=== PATIENT | male | born 1965 | race Caucasian/White ===

== ENCOUNTER → 2017-06-10 | Outpatient (CLI) | payer BC ==
[2017-06-10 15:47] LABS: BLOOD UREA NITROGEN 9 mg/dl (7-18); CALCIUM 8.7 mg/dl (8.5-10.1); CARBON DIOXIDE 26 mmol/L (21-32); CREATININE 1.01 mg/dl (0.60-1.40); GLUCOSE 107 mg/dl (70-99); POTASSIUM 3.9 mmol/L (3.5-5.1); SODIUM 135 mmol/L (136-145)
[2017-06-10 15:57] LABS: CHOLESTEROL 176 mg/dl (0-200); TRANSFERRIN 339 mg/dl (200-360)
[2017-06-11 08:10] LABS: HEMOGLOBIN A1C 6.2 % (4.5-5.6)
== END | disposition home or self-care (01) ==
LOC: C.LAB 11:34
PROVIDERS: ATTEND Physician Assistant
DX: E83.110 Hereditary hemochromatosis (principal); I10 Essential (primary) hypertension

== ENCOUNTER → 2017-06-17 | Outpatient (CLI) | payer BC ==
--- NOTE | 2017-06-17 13:53 | DIAGNOSTIC IMAGING REPORT ---
ABDOMEN AND PELVIS CT WITHOUT CONTRAST CT DOSE: 1687.60 mGy.cm HISTORY: Acute left lower quadrant abdominal pain DIVERTICULITIS TECHNIQUE: Multiaxial CT images of the abdomen and pelvis were performed without contrast. A dose lowering technique was utilized adhering to the principles of ALARA. COMPARISON STUDY: CT 05/02/2013. FINDINGS: Calcified granulomas of the lung bases. Subsegmental bibasilar groundglass opacities suggest atelectasis. No pneumatosis or pneumoperitoneum. Imaged inferior cardiac chambers are unremarkable. Hepatomegaly with hepatic steatosis. Spleen is mildly enlarged, 13.3 cm. Gallbladder, pancreas and adrenal glands are within normal limits. Punctate nonobstructing calculus of the inferior pole left kidney. Ureters and bladder are unremarkable. Calcifications of the central prostate. Mild atherosclerosis of the aorta without aneurysm. No bulky adenopathy. Mildly prominent bilateral inguinal lymph nodes, likely reactive. No bowel obstruction. There is moderate pericolonic inflammatory changes and thickening of the adjacent peritoneum nicely seen on image 305 series 3 with adjacent fatty attenuating peripherally inflamed structure measuring 6.2 x 3.5 cm terminating from the anterior wall of the colon compatible with acute epiploic appendagitis. There are a few noninflamed colonic diverticula noted. No definite inflamed diverticulum or significant bowel wall thickening identified. No perforation or drainable fluid collection. Normal appendix. Small fat filled periumbilical hernia, diastases 1.7 cm. Left-sided gynecomastia. Bones appear intact. Grade 1 anterolisthesis L4 on L5 with associated facet arthrosis. Bone island of the right proximal femur. IMPRESSION: 1. Findings compatible with acute epiploic appendagitis of the distal descending colon with moderate pericolic inflammatory changes. No evidence of perforation or drainable fluid collection. 2. No bowel obstruction. Normal appendix. 3. Hepatosplenomegaly with hepatic steatosis. 4. Punctate nonobstructing calculus of the inferior pole left kidney. 5. Tiny fat filled periumbilical hernia. Electronically signed by: Brody Perez M.D. 06/17/2017 1:51 PM Dictated Date/Time: 06/17/2017 1:40 PM
== END | disposition home or self-care (01) ==
LOC: C.CTS 13:12
PROVIDERS: ATTEND Student in an Organized Health Care Education/Training Program
DX: K57.92 Diverticulitis of intestine, part unspecified, without perforation or abscess without bleeding (principal)

== ENCOUNTER → 2017-07-25 | Outpatient (CLI) | payer BC ==
[2017-07-25 14:56] LABS: TRANSFERRIN 320 mg/dl (200-360)
== END | disposition home or self-care (01) ==
LOC: C.LABCP 14:05
PROVIDERS: ATTEND Family Medicine
DX: E83.110 Hereditary hemochromatosis (principal)